=== PATIENT | female | born 1975 | race Caucasian/White ===

== ENCOUNTER → 2017-01-14 | Outpatient (CLI) | payer BC ==
[2017-01-15 02:41] LABS: Soybean IgE <0.10 kU/L
[2017-01-15 02:42] LABS: Egg White IgE <0.10 kU/L
[2017-01-15 03:10] LABS: Gliadin AB IgA, Deaminated NEGATIVE (NEGATIVE); Gliadin AB IgG, Deaminated NEGATIVE (NEGATIVE); Gliadin AB IgG, Unit <0.4 U/mL; Tis Transglutaminase IgA Unit <0.5 AI; Tis Transglutaminase IgG Unit 3.5 U/mL
[2017-01-15 14:14] LABS: Almond IgE <0.35 kU/L (<0.35); Almond IgE Class CLASS 0; Cashew IgE <0.35 kU/L (<0.35); Cashew IgE Class CLASS 0; Pea IgE (Grn) <0.35 kU/L (<0.35); Pea(Grn) IgE Class CLASS 0; Pecan IgE <0.35 kU/L (<0.35); Pecan IgE Class CLASS 0
[2017-01-15 14:15] LABS: Banana IgE Class CLASS 0; Oat IgE Class CLASS 0; Salmon IgE <0.35 kU/L (<0.35); Salmon IgE Class CLASS 0; Tuna IgE <0.35 kU/L (<0.35); Tuna IgE Class CLASS 0
[2017-01-15 14:16] LABS: Green Bean IgE <0.35 kU/L (<0.35); Green Bean IgE Class CLASS 0
[2017-01-21 08:50] LABS: Mis test requested (Blood) Whitefish IgE
== END | disposition home or self-care (01) ==
LOC: LABWHC1 15:34
PROVIDERS: ATTEND Allergy & Immunology
DX: K52.9 Noninfective gastroenteritis and colitis, unspecified (principal); L29.9 Pruritus, unspecified
CPT/HCPCS: 36415; 82784; 83516; 84443; 86003; 86376; 86800

== ENCOUNTER → 2017-01-23 | Outpatient (CLI) | payer BC ==
--- NOTE | 2017-01-24 11:30 | US ---
EXAMINATION TYPE: US thyroid st tissue head/neck DATE OF EXAM: 01/23/2017 COMPARISON: NONE CLINICAL HISTORY: purvi thyroiditis E06.3. GLAND SIZE: Right Lobe: 4.3 x 1.2 x 1.3 cm Overall Parenchyma: heterogenous Left Lobe: 4.3 x 1.2 x 1.4 cm Overall Parenchyma: heterogeneous Isthmus Thickness: 0.3 cm NODULES RIGHT: # of nodules measured on right: 0 0 LEFT: # of nodules measured on left: 0 ISTHMUS: # of nodules measured in the isthmus: 0 Heterogenous lobes with increased vascularity. Bilateral neck scanned, no evidence of lymphadenopathy. IMPRESSION: 1. Unremarkable thyroid ultrasound
== END ==
LOC: RADUSWWP 16:52
PROVIDERS: ATTEND Allergy & Immunology
DX: E06.3 Autoimmune thyroiditis (principal)
CPT/HCPCS: 76536

== ENCOUNTER → 2017-05-15 | Day surgery (SDC) | payer BC ==
[2017-05-14 08:17] VITALS: BMI 24.3
[~2017-05-15] MED LIST: LACTATED RINGERS 1,000 ML IV SCH; LIDOCAINE 1% 20 ML VIAL (10MG/ML) FOR IV START INTRADERMA PRN; MIDAZOLAM 2 MG/2 ML VIAL ONE; PROPOFOL 10 MG/ML 20 ML VIAL IV ONE
[2017-05-15 09:37] VITALS: TEMP 97.9
--- NOTE | 2017-05-15 10:23 | P.PCN ---
Date of Procedure: 05/15/17 Procedure(s) Performed: BRIEF HISTORY: Patient is a 41-year-old pleasant white female, scheduled for an elective colonoscopy as a part of evaluation of intermittent rectal bleeding, perianal itching and change in bowel habits. PROCEDURE PERFORMED: Colonoscopy. PREOPERATIVE DIAGNOSIS: Rectal bleeding/pruritus ani/change in bowel habits. IV sedation per Anesthesia. PROCEDURE: After informed consent was obtained, the patient, was brought into the endoscopy unit. IV sedation was administered by Anesthesia under continuous monitoring. Digital rectal examination was normal. Mild erythema of the perianal area noted. Initially the Olympus CF-160 flexible video colonoscope was then inserted in the rectum, gradually advanced into the cecum without any difficulty. Careful examination was performed as the scope was gradually being withdrawn. Ileocecal valve and the appendiceal orifice were visualized and appeared normal. Prep was excellent. Mucosa of the cecum, ascending colon, transverse colon, descending colon, sigmoid colon, and rectum appeared normal. Retroflexion was performed in the rectum and small internal hemorrhoids were seen. The patient tolerated the procedure well. IMPRESSION: Normal-appearing colon from rectum to cecum with no evidence of colorectal neoplasia. Mild perianal erythema noted. Small internal hemorrhoids. RECOMMENDATIONS: Findings of this examination were discussed with the patient as well as a family. She was advised to continue with a high-fiber diet, fiber supplements a regular basis and topical hydrocortisone perianally as needed.
[2017-05-15 10:30] VITALS: RESP 16
[2017-05-15 10:47] VITALS: BP 114/70; PULSE 80
== END | disposition home or self-care (01) ==
LOC: ORWHC2ENDO 09:12
PROVIDERS: ATTEND Internal Medicine Gastroenterology
DX: K64.8 Other hemorrhoids (principal); L29.0 Pruritus ani; R19.4 Change in bowel habit; L53.8 Other specified erythematous conditions; Z88.0 Allergy status to penicillin
CPT/HCPCS: 81025; 45378; J2250; J2704

== ENCOUNTER → 2017-10-14 | Outpatient (CLI) | payer BC ==
[2017-10-14 09:55] LABS: T4, Free (Free Thyroxine) 1.05 ng/dL (0.78-2.19)
== END | disposition home or self-care (01) ==
LOC: LABWHC1 09-30 15:14
PROVIDERS: ATTEND Internal Medicine Endocrinology, Diabetes & Metabolism
DX: E03.9 Hypothyroidism, unspecified (principal); E06.3 Autoimmune thyroiditis
CPT/HCPCS: 36415; 84439; 84443; 86376

== ENCOUNTER → 2018-03-27 | Outpatient (CLI) | payer BC | END | disposition home or self-care (01) | LOC: LABWHC1 12:32 | PROVIDERS: ATTEND Internal Medicine Endocrinology, Diabetes & Metabolism | DX: E03.8 Other specified hypothyroidism (principal) | CPT/HCPCS: 36415; 84443 ==

== ENCOUNTER 2020-09-04 03:30 | Emergency (ER) | payer BC ==
--- NOTE | 2020-09-04 03:36 | ED ---
Allergic Reaction HPI - General Stated complaint: Med Reaction Time Seen by Provider: 09/04/20 03:33 - Related Data Home Medications Medication Instructions Recorded Confirmed Calcium+ Magnesium+ Zinc 1 tab PO DAILY 05/14/17 05/14/17 Calcium/Magnesium/Zinc 1 each PO DAILY 05/14/17 05/14/17 [Qlobgae-[id number]-Ckdm Tablet] Vitamin B Complex 1 each PO DAILY 05/14/17 05/14/17 Allergies Allergy/AdvReac Type Severity Reaction Status Date / Time amoxicillin Allergy Rash/Hives Verified 09/04/20 03:37 Review of Systems ROS Statement: Those systems with pertinent positive or pertinent negative responses have been documented in the HPI. ROS Other: All systems not noted in ROS Statement are negative. Past Medical History Additional Past Medical History / Comment(s): hemorrhoids, rectal bleeding, History of Any Multi-Drug Resistant Organisms: None Reported Past Surgical History: Tonsillectomy Additional Past Surgical History / Comment(s): surgery for fx rt femur Past Anesthesia/Blood Transfusion Reactions: No Reported Reaction Past Psychological History: No Psychological Hx Reported Past Alcohol Use History: None Reported Past Drug Use History: None Reported - Past Family History Mother Family Medical History: No Reported History Course Vital Signs 09/04/20 03:32 Temperature 98.1 F Pulse Rate 89 Respiratory 16 Rate Blood Pressure 130/73 O2 Sat by Pulse 98 Oximetry Medical Decision Making - Lab Data Lab Results 09/04/20 09/04/20 Range/Units 05:05 05:05 Urine Color Yellow Urine Appearance Clear (Clear) Urine pH 5.5 (5.0-8.0) Ur Specific [place] 1.013 (1.001-1.035) Urine Protein Negative (Negative) Urine Glucose (UA) Negative (Negative) Urine Ketones Negative (Negative) Urine Blood Negative (Negative) Urine Nitrite Negative (Negative) Urine Bilirubin Negative (Negative) Urine Urobilinogen <2.0 (<2.0) mg/dL Ur Leukocyte Esterase Negative (Negative) Urine HCG, Qual Not Detected (Not Detectd) Disposition Clinical Impression: Medication reaction, Marijuana use, Back pain Disposition: HOME SELF-CARE Condition: Good Instructions (If sedation given, give patient instructions): Medicinal Use of Cannabis (ED) Is patient prescribed a controlled substance at d/c from ED?: No Referrals: Tameka Jacinto DO [Primary Care Provider] - 1-2 days
[2020-09-04 05:27] LABS: Appearance,Urine Clear (Clear); Bilirubin,Urine Negative (Negative); Blood,Urine Negative (Negative); Color,Urine Yellow; Glucose,Urine (UA) Negative (Negative); Ketones,Urine Negative (Negative); Leukocyte Esterase,Urine Negative (Negative); Nitrite,Urine Negative (Negative); PH, Urine 5.5 (5.0-8.0); Protein,Urine Negative (Negative); Specific Gravity,Urine 1.013 (1.001-1.035); Urobilinogen,Urine <2.0 mg/dL (<2.0)
--- NOTE | 2020-09-04 05:27 | XR ---
EXAM: XR Lumbosacral Spine, 2 or 3 Views CLINICAL HISTORY: Back pain. TECHNIQUE: Frontal and lateral views of the lumbar spine and sacrum. COMPARISON: No previous studies. FINDINGS: Vertebrae: The vertebral bodies and the pedicles are unremarkable. No compression fractures. Sacrum/coccyx: Transitional anatomy is noted with lumbarization of S1 vertebral body. Mild to moderate osteoarthritic changes about the sacroiliac joints. No acute fracture. Disc spaces: No acute findings. No significant narrowing. Soft tissues: Unremarkable. IMPRESSION: 1. Transitional anatomy. Osteoarthritic changes about the sacroiliac joints. 2. No compression fractures. 3. Normal alignment.
[2020-09-04 06:16] VITALS: BP 118/88; PULSE 83; RESP 14; TEMP 98.4
== END 2020-09-04 06:16 | disposition home or self-care (01) ==
LOC: EC 03:30
DX: M54.9 Dorsalgia, unspecified (principal); T42.8X5A Adverse effect of antiparkinsonism drugs and other central muscle-tone depressants, initial encounter; F12.90 Cannabis use, unspecified, uncomplicated
CPT/HCPCS: 72100; 81003; 81025; 99283

== ENCOUNTER → 2021-06-21 | Outpatient (CLI) | payer BC ==
[2021-06-22 02:39] LABS: Thyroid Peroxidase Antibodies 67.4 U/mL (0.0-33.0)
== END | disposition home or self-care (01) ==
LOC: LABWHC1 16:20
PROVIDERS: ATTEND Internal Medicine Endocrinology, Diabetes & Metabolism
DX: E06.3 Autoimmune thyroiditis (principal); E03.8 Other specified hypothyroidism
CPT/HCPCS: 36415; 84443; 86376; 86800

== ENCOUNTER → 2021-11-21 | Outpatient (CLI) | payer BC | END | disposition home or self-care (01) | LOC: LABWHC1 15:14 | PROVIDERS: ATTEND Internal Medicine Endocrinology, Diabetes & Metabolism | DX: E03.8 Other specified hypothyroidism (principal) | CPT/HCPCS: 36415; 84443; 86376 ==